=== PATIENT | male | born 2000 | race Caucasian/White ===

== ENCOUNTER 2025-04-09 00:41 | Inpatient (IN) | payer MEDICAID, OTHER ==
[~2025-04-09] VITALS: Ht 188 cm; Wt 112.7 kg
[2025-04-09 02:26] LABS: GLUCOMETER DEV NAME(LOC) ERT.7; GLUCOSE,POINT OF CARE 298 MG/DL (70-110)
[2025-04-09 02:31] LABS: COVID AG,FIA SOURCE NASAL SWAB
[2025-04-09 02:45] LABS: APPEARANCE,URINE CLEAR (CLEAR); BILIRUBIN,URINE NEGATIVE (NEGATIVE); COLOR,URINE YELLOW (YELLOW); GLUCOSE, URINE (UA) >=1000 mg/dL (NEGATIVE); KETONES,URINE NEGATIVE (NEGATIVE); LEUKOCYTE ESTERASE ,URINE NEGATIVE (NEGATIVE); NITRATE,URINE NEGATIVE (NEGATIVE); OCCULT BLOOD,URINE MODERATE (NEGATIVE); PH,URINE 5.5 (5.0-8.0); PH,URINE DRUG SCREEN 5.5 (5.0-8.0); PROTEIN,URINE 100-200,SEE CONFIRM mg/dL (NEGATIVE); SPECIFIC GRAVITIY, URINE 1.032 (1.003-1.030); UROBILINOGEN,URINE <=1.0 mg/dL (<=1.0)
[2025-04-09 02:49] LABS: ALCOHOL, URINE DRUG SCREEN NEGATIVE (NEGATIVE); AMPHET/METH SCREEN,URINE NEGATIVE (NEGATIVE); BARBITURATE SCREEN, URINE NEGATIVE (NEGATIVE); BENZODIAZEPINES SCREEN,URINE NEGATIVE (NEGATIVE); CANNABINOID SCREEN,URINE POSITIVE (NEGATIVE); COCAINE SCREEN,URINE NEGATIVE (NEGATIVE); METHADONE SCREEN, URINE NEGATIVE (NEGATIVE); OPIATE SCREEN,URINE POSITIVE (NEGATIVE); PHENCYCLIDINE SCREEN,URINE NEGATIVE (NEGATIVE)
[2025-04-09] MEDS: OLANZapine 10 MG TABLET PO ONE (02:50)
[2025-04-09] MEDS: LORazepam 2 MG TABLET PO ONE (02:50)
[2025-04-09] MEDS: ARIPiprazole 15 MG TABLET PO ONE (02:52)
[2025-04-09 02:59] LABS: SARS-COV2 (COVID) ANTIGEN,FIA Negative (Negative)
[2025-04-09 03:00] LABS: SULFOSALICYLIC ACID,URINE 4+ (Negative)
[2025-04-09 03:01] LABS: BACTERIA,URINE Few /HPF (None Seen); SQUAMOUS EPITHELIAL CELL,UR Few /LPF (None Seen); WBC,URINE 0-2 /HPF (0-5)
[2025-04-09 04:57] LABS: BASOPHILS % (AUTO) 0.2 % (0.0-2.0); EOSINOPHILS % (AUTO) 0.9 % (1.0-6.0); LYMPHOCYTES # (AUTO) 2.1 K/uL (1.0-4.8); LYMPHOCYTES % (AUTO) 24.6 % (22.0-44.0); MEAN CORPUSCULAR HEMOGLOBIN 23.3 pg (26.0-34.0); MEAN CORPUSCULAR HGB CONC 33.2 G/dL (31.0-37.0); MEAN CORPUSCULAR VOLUME 70 fL (80-100); MONOCYTES % (AUTO) 11.2 % (2.0-9.0); NEUTROPHILS # (AUTO) 5.4 K/uL (1.8-7.7); NEUTROPHILS % (AUTO) 63.1 % (40.0-70.0); PLATELET COUNT (AUTO) 311 K/uL (150-450); RED BLOOD CELL COUNT(AUTO) 5.99 MIL/uL (4.50-5.90); WHITE BLOOD COUNT (AUTO) 8.6 K/uL (4.5-11.0)
[2025-04-09 05:17] LABS: ANION GAP 4 mmol/L (8-16); CALCIUM, TOTAL 8.6 mg/dL (8.8-10.5); CARBON DIOXIDE 30 mmol/L (22-29); CHLORIDE 105 mmol/L (98-107); CREATININE 1.02 mg/dL (0.60-1.30); GLOMERULAR FILTR. RATE CALC > 60 mL/min (>60); GLUCOSE,RANDOM 193 mg/dL (70-110); POTASSIUM 4.1 mmol/L (3.5-5.1); SODIUM SERUM 139 mmol/L (136-145); UREA NITROGEN, BLOOD 23 mg/dL (7-18)
[2025-04-09] MEDS ORDERED: TUBERCULIN, PURIFIED PROTEIN DERIVATIVE 5 TU/0.1 ML SYRINGE ID ONE (07:45)
[2025-04-09] MEDS ORDERED: LOPERAMIDE HCL 2 MG CAPSULE PO PRN (07:45)
[2025-04-09] MEDS ORDERED: OLANZapine 5 MG RAPDIS TABLET PO PRN (07:45)
[2025-04-09] MEDS ORDERED: GuaiFENesin/D-METHORPHAN [SUGAR-FREE] 200-20MG/10 ML SYRUP UDCUP PO PRN (07:45)
[2025-04-09] MEDS ORDERED: ZOLPIDEM TARTRATE 10 MG TABLET PO PRN (07:45)
[2025-04-09] MEDS ORDERED: MAGNESIUM HYDROXIDE SUSPENSION 30 ML UDCUP PO PRN (07:45)
[2025-04-09] MEDS ORDERED: PROMETHAZINE HCL 25 MG TABLET PO PRN (07:45)
[2025-04-09] MEDS ORDERED: MAG HYDROX/ALUMINUM HYD/SIMETH ES 30 ML SUSPENSION UDCUP PO PRN (07:45)
[2025-04-09] MEDS ORDERED: HydrOXYzine PAMOATE 50 MG CAPSULE PO PRN (07:45)
[2025-04-09] MEDS: THIAMINE 100 MG TABLET PO SCH (08:38)
[2025-04-09] MEDS: GABAPENTIN 300 MG CAPSULE PO ONE (08:39)
[2025-04-09] MEDS: MULTIVITAMINS WITH MINERALS, THERAPEUTIC TABLET PO SCH (08:39)
[2025-04-09] MEDS: OLANZapine 5 MG TABLET PO ONE (08:39)
[2025-04-09] MEDS: FOLIC ACID 1 MG TABLET PO SCH (08:39)
[2025-04-09] MEDS: LORazepam 2 MG TABLET PO PRN (16:05)
[2025-04-09] MEDS: ACETAMINOPHEN 325 MG TABLET PO PRN (16:05)
[2025-04-09] MEDS: haloperidoL LACTATE 5 MG/ML VIAL IM ONE (16:19)
[2025-04-09] MEDS: DiphenhydrAMINE HCL 50 MG/ML VIAL IM ONE (16:19)
[2025-04-09] MEDS: LORazepam 2 MG/ML VIAL IM ONE (16:19)
[2025-04-09 17:27] VITALS: O2SAT 98
[2025-04-09] MEDS: DIVALPROEX SODIUM 500 MG ER TABLET PO SCH (20:11)
[2025-04-09] MEDS: MELATONIN 5 MG TABLET PO SCH (20:12)
[2025-04-09] MEDS: OLANZapine 5 MG RAPDIS TABLET PO SCH (21:00)
[2025-04-09 23:30] VITALS: BP 147/74; PULSE 92; RESP 18; TEMP 97.9; O2SAT 98
[2025-04-10] VITALS (10 sets, daily range): BP systolic 142–150; BP diastolic 72–76; PULSE 83–96; RESP 18; TEMP 97.2–97.9; O2SAT 98
[2025-04-10] MEDS: INSULIN LISPRO 100 UNITS/ML SQ PRN (07:19)
[2025-04-10 07:30] LABS: GLUCOMETER DEV NAME(LOC) 3E.C; GLUCOSE,POINT OF CARE 161 MG/DL (70-110)
[2025-04-10] MEDS: NALTREXONE HCL 50 MG TABLET PO SCH (09:00)
[2025-04-10] MEDS ORDERED: FOLI-130 PO (19:58)
[2025-04-10] MEDS ORDERED: MULT-248 PO (19:58)
[2025-04-10] MEDS ORDERED: THIA100T80 PO (19:58)
[2025-04-10] MEDS ORDERED: GUAI-1217 PO (19:58)
[2025-04-10] MEDS ORDERED: LOPE-232 PO (19:58)
[2025-04-10] MEDS ORDERED: OLAN5TAB94 PO (19:58)
[2025-04-10] MEDS ORDERED: HYDR50CA7 PO (19:58)
[2025-04-10] MEDS ORDERED: DIVA-153 PO (19:58)
[2025-04-10] MEDS ORDERED: MAG30ORA11 PO (19:58)
[2025-04-10] MEDS ORDERED: MELA5TAB40 PO (19:58)
[2025-04-10] MEDS ORDERED: NALT50TA33 PO (19:58)
[2025-04-10] MEDS ORDERED: PROM-223 PO (19:58)
[2025-04-10 20:49] LABS: HEMOGLOBIN A1C 6.7 % (3.8-5.6)
[2025-04-10 21:00] LABS: CHOL/HDL RATIO 2.4 (4.2-7.3); FREE T4 (FREE THYROXINE) 1.05 ng/dL (0.76-1.46); THYROID STIMULATING HORMONE 0.85 uIU/mL (0.36-3.74)
== END 2025-04-10 16:39 | disposition short-term general hospital (02) | DRG 750 ==
LOC: EMS 00:47 → 3EC 22:56
PROVIDERS: ADMIT Psychiatry & Neurology Psychiatry; ATTEND Psychiatry & Neurology Psychiatry
PROC: GZHZZZZ Group Psychotherapy (ICD-10-PCS; principal; 2025-04-10)
PROC: GZ58ZZZ Individual Psychotherapy, Cognitive-Behavioral (ICD-10-PCS; 2025-04-10)
DX: F25.0 Schizoaffective disorder, bipolar type (principal); R45.851 Suicidal ideations; L97.519 Non-pressure chronic ulcer of other part of right foot with unspecified severity; T87.43 Infection of amputation stump, right lower extremity; E11.621 Type 2 diabetes mellitus with foot ulcer; E11.65 Type 2 diabetes mellitus with hyperglycemia; E66.9 Obesity, unspecified; X58.XXXA Exposure to other specified factors, initial encounter; F84.0 Autistic disorder; F90.9 Attention-deficit hyperactivity disorder, unspecified type; G89.29 Other chronic pain; L98.8 Other specified disorders of the skin and subcutaneous tissue; Z20.822 Contact with and (suspected) exposure to COVID-19; Z79.899 Other long term (current) drug therapy; Z68.31 Body mass index [BMI] 31.0-31.9, adult; Z91.018 Allergy to other foods; Z63.9 Problem related to primary support group, unspecified; Z59.9 Problem related to housing and economic circumstances, unspecified; Z65.3 Problems related to other legal circumstances; Y93.89 Activity, other specified; Y92.89 Other specified places as the place of occurrence of the external cause; Z79.84 Long term (current) use of oral hypoglycemic drugs
CPT/HCPCS: 70450; 70486; 80048; 80061; 80307; 81001; 81002; 82962; 83036; 84439; 84443; 85025; 86592; 96372; 99285; G0480; J1200; J1630; J2060

== ENCOUNTER 2025-04-28 08:19 | Inpatient (IN) | payer OTHER ==
[~2025-04-28] VITALS: Ht 190.5 cm; Wt 95.5 kg
[~2025-04-28 08:19] MED LIST: ARIP882S2 IM; DIVA-153 PO; DULO60CA98 PO; FOLI-130 PO; GABA-1216 PO; GUAI-1217 PO; GUAN1TAB63 PO; HYDR50CA7 PO; LOPE-232 PO; MAG30ORA11 PO; MELA5TAB40 PO; METF-1185 PO; MULT-248 PO; NALT50TA33 PO; NICO2GUM36 PO; OLAN5TAB94 PO; PROM-223 PO; QUET100T PO; THIA100T80 PO; TRAZ-252 PO
[2025-04-28 08:42] VITALS: O2SAT 96
[2025-04-28] MEDS ORDERED: HYDROmorphone HCL 2 MG TABLET PO PRN (09:15)
[2025-04-28] MEDS ORDERED: ONDANSETRON HCL 4 MG/2 ML VIAL IVP PRN (09:15)
[2025-04-28] MEDS ORDERED: DEXTROSE 50%-WATER 25 GM/50 ML SYRINGE IVP PRN (09:15)
[2025-04-28] MEDS ORDERED: ACETAMINOPHEN 325 MG TABLET PO PRN (09:15)
[2025-04-28] MEDS: ONDANSETRON HCL 4 MG/2 ML VIAL IVP ONE (09:27)
[2025-04-28] MEDS: HYDROmorphone HCL 2 MG/ML SYRINGE IVP ONE (09:27)
[2025-04-28 09:59] VITALS: BP 139/78; PULSE 89; RESP 18; TEMP 97.5; O2SAT 98
[2025-04-28] MEDS ORDERED: DOCU-385 PO (11:03)
[2025-04-28] MEDS ORDERED: FAMO20 PO (11:04)
[2025-04-28] MEDS ORDERED: HEPA500018 SQ (11:05)
[2025-04-28] MEDS ORDERED: ACET-2247 PO (11:06)
[2025-04-28] MEDS ORDERED: PANT-31 PO (11:06)
[2025-04-28] MEDS ORDERED: DEXT50DI6 IV (11:08)
[2025-04-28] MEDS ORDERED: HYDR2CAR IVP (11:09)
[2025-04-28] MEDS ORDERED: INSU100V SQ (11:10)
[2025-04-28] MEDS ORDERED: ONDA2VIA4 IVP (11:12)
[2025-04-28 11:45] LABS: GLUCOMETER DEV NAME(LOC) 4E.2; GLUCOSE,POINT OF CARE 335 MG/DL (70-110)
[2025-04-28] MEDS: INSULIN LISPRO 100 UNITS/ML SQ PRN (11:50)
[2025-04-28] MEDS ORDERED: HEPARIN SODIUM,PORCINE 5,000 UNITS/ML VIAL SQ SCH (16:00)
[2025-04-28] MEDS ORDERED: DIVALPROEX SODIUM 500 MG DR TABLET PO SCH (21:00)
[2025-04-28] MEDS ORDERED: DOCUSATE SODIUM 100 MG CAPSULE PO SCH (21:00)
[2025-04-28] MEDS ORDERED: OLANZapine 7.5 MG TABLET PO SCH (21:00)
[2025-04-29] MEDS ORDERED: GuanFACINE HCL 1 MG TABLET PO SCH (09:00)
[2025-04-29] MEDS ORDERED: PANTOPRAZOLE SODIUM 40 MG DR TABLET PO SCH (09:00)
[2025-04-29] MEDS ORDERED: FAMOTIDINE 20 MG TABLET PO SCH (09:00)
== END 2025-04-28 12:06 | disposition short-term general hospital (02) | DRG 349 ==
LOC: EMS 08:19 → EDH 09:31 → 4E 10:08
PROVIDERS: ADMIT Internal Medicine; ATTEND Internal Medicine
DX: T87.89 Other complications of amputation stump (principal); L97.519 Non-pressure chronic ulcer of other part of right foot with unspecified severity; E11.40 Type 2 diabetes mellitus with diabetic neuropathy, unspecified; E11.51 Type 2 diabetes mellitus with diabetic peripheral angiopathy without gangrene; E11.621 Type 2 diabetes mellitus with foot ulcer; L97.529 Non-pressure chronic ulcer of other part of left foot with unspecified severity; G93.9 Disorder of brain, unspecified; E66.01 Morbid (severe) obesity due to excess calories; E11.65 Type 2 diabetes mellitus with hyperglycemia; F20.9 Schizophrenia, unspecified; F84.0 Autistic disorder; F90.9 Attention-deficit hyperactivity disorder, unspecified type; F31.9 Bipolar disorder, unspecified; Z79.4 Long term (current) use of insulin; Z91.199 Patient's noncompliance with other medical treatment and regimen due to unspecified reason; Z87.891 Personal history of nicotine dependence; Z89.422 Acquired absence of other left toe(s); Z91.010 Allergy to peanuts; Z91.018 Allergy to other foods; Z68.26 Body mass index [BMI] 26.0-26.9, adult; Z88.5 Allergy status to narcotic agent; Y83.8 Other surgical procedures as the cause of abnormal reaction of the patient, or of later complication, without mention of misadventure at the time of the procedure; Y92.89 Other specified places as the place of occurrence of the external cause
CPT/HCPCS: 82962; 96374; 96375; 99285; G0378; J1171; J2405

== ENCOUNTER 2025-09-14 11:53 | Inpatient (IN) | payer MEDICAID ==
[~2025-09-14] VITALS: Ht 188 cm; Wt 136.1 kg
[~2025-09-14 11:53] MED LIST changes: +ARIP15TA27 PO; -ARIP882S2 IM; +ATOM40CA9 PO; +ATOM60CA4 PO; +BUPR1TAB46 SL; +DULO60CA73 PO; -DULO60CA98 PO; -FOLI-130 PO; +GABA-1181 PO; -GABA-1216 PO; -GUAI-1217 PO; -GUAN1TAB63 PO; -HYDR50CA7 PO; -LOPE-232 PO; -MAG30ORA11 PO; -MELA5TAB40 PO; -METF-1185 PO; +METF-1211 PO; -MULT-248 PO; +MULT-664 PO; -NALT50TA33 PO; -NICO2GUM36 PO; +NIFE-141 PO; +OLAN10TA74 PO; -OLAN5TAB94 PO; +PALI117D IM; -PROM-223 PO; -QUET100T PO; -THIA100T80 PO; -TRAZ-252 PO; +VARE0.5T7 PO
[2025-09-14] MEDS ORDERED: OLANZapine 5 MG RAPDIS TABLET PO PRN (12:30)
[2025-09-14 22:52] VITALS: RESP 18
[2025-09-14] MEDS ORDERED: DEXTROSE 50%-WATER 25 GM/50 ML SYRINGE IVP PRN (23:45)
[2025-09-15] MEDS ORDERED: INFLUENZA VIRUS VACCINE TVS (6MO+) 2025-26/PF 45 MCG/0.5 ML SYRINGE IM. ONE (02:45)
[2025-09-15 06:31] LABS: GLUCOMETER DEV NAME(LOC) 3E.C; GLUCOSE,POINT OF CARE 96 MG/DL (70-110)
[2025-09-15] MEDS: ATOMOXETINE HCL 25 MG CAPSULE PO SCH (09:00)
[2025-09-15] MEDS: GABAPENTIN 300 MG CAPSULE PO SCH (09:00)
[2025-09-15] MEDS: CEPHALEXIN MONOHYDRATE 500 MG CAPSULE PO SCH (09:00)
[2025-09-15] MEDS: BuPROPion HCL XL 150 MG ER TABLET PO SCH (09:00)
[2025-09-15] MEDS: VARENICLINE TARTRATE 0.5 MG TABLET PO SCH (09:00)
[2025-09-15] MEDS: SULFAMETHOX/TRIMETH DS 800-160 MG/TABLET PO SCH (09:00)
[2025-09-15] MEDS: DIVALPROEX SODIUM 500 MG ER TABLET PO SCH (09:00)
[2025-09-15] MEDS ORDERED: BuPROPion HCL XL 150 MG ER TABLET PO SCH (09:00)
[2025-09-15] MEDS: BUPRENORPHINE HCL/NALOXONE HCL 8-2 MG SUBLINGUAL TABLET SL SCH (09:00)
[2025-09-15 09:14] VITALS: BP 94/55; PULSE 68; RESP 18; TEMP 97.8; O2SAT 100
[2025-09-15 11:59] LABS: CHOL/HDL RATIO 3.4 (4.2-7.3); LDL CHOL (CALC.) 54.0 mg/dL (0-130)
[2025-09-15] MEDS: INSULIN LISPRO 100 UNITS/ML SQ PRN (12:42)
[2025-09-15 12:56] LABS: GLUCOMETER DEV NAME(LOC) 3E.C; GLUCOSE,POINT OF CARE 134 MG/DL (70-110)
[2025-09-15 16:27] VITALS: RESP 20
[2025-09-15 17:00] LABS: GLUCOMETER DEV NAME(LOC) 3E.C; GLUCOSE,POINT OF CARE 101 MG/DL (70-110)
[2025-09-15] MEDS: INSULIN GLARGINE,HUM.REC.ANLOG 100 UNITS/ML SQ SCH (21:00)
[2025-09-15 21:06] LABS: GLUCOMETER DEV NAME(LOC) 3E.C; GLUCOSE,POINT OF CARE 92 MG/DL (70-110)
[2025-09-15 21:07] VITALS: BP 121/55; PULSE 92; RESP 18; TEMP 97.5; O2SAT 96
[2025-09-16 10:52] VITALS: BP 125/91; PULSE 95; RESP 17; TEMP 97.9; O2SAT 99
[2025-09-16 12:00] LABS: GLUCOMETER DEV NAME(LOC) 3E.C; GLUCOSE,POINT OF CARE 133 MG/DL (70-110)
[2025-09-16] MEDS: NICOTINE POLACRILEX 2 MG GUM CHEW ONE (12:22)
[2025-09-16] MEDS: NICOTINE POLACRILEX 2 MG GUM CHEW PRN (12:40)
[2025-09-16 17:10] VITALS: BP 137/88; PULSE 103; RESP 18
[2025-09-16 17:40] LABS: GLUCOMETER DEV NAME(LOC) 3E.C; GLUCOSE,POINT OF CARE 185 MG/DL (70-110)
[2025-09-16 20:08] VITALS: RESP 18; TEMP 98.7
[2025-09-16] MEDS: OLANZapine 5 MG RAPDIS TABLET PO SCH (21:33)
[2025-09-16 21:36] LABS: GLUCOMETER DEV NAME(LOC) 3E.C; GLUCOSE,POINT OF CARE 93 MG/DL (70-110)
[2025-09-17] MEDS: ZOLPIDEM TARTRATE 10 MG TABLET PO PRN (01:06)
[2025-09-17] MEDS: ATOMOXETINE HCL 40 MG CAPSULE PO SCH (08:46)
[2025-09-17] MEDS ORDERED: ATOMOXETINE HCL 40 MG CAPSULE PO SCH (09:00)
[2025-09-17 11:50] LABS: GLUCOMETER DEV NAME(LOC) 3E.C; GLUCOSE,POINT OF CARE 228 MG/DL (70-110)
[2025-09-17 13:12] VITALS: BP 135/89; PULSE 98; RESP 17; TEMP 98.2; O2SAT 99
[2025-09-17 17:31] LABS: GLUCOMETER DEV NAME(LOC) 3E.C; GLUCOSE,POINT OF CARE 168 MG/DL (70-110)
[2025-09-17 20:00] VITALS: BP 136/82; PULSE 98; RESP 18; TEMP 98.3; O2SAT 100
[2025-09-17 21:45] LABS: GLUCOMETER DEV NAME(LOC) 3E.C; GLUCOSE,POINT OF CARE 153 MG/DL (70-110)
[2025-09-18 07:01] LABS: GLUCOMETER DEV NAME(LOC) 3E.C; GLUCOSE,POINT OF CARE 97 MG/DL (70-110)
[2025-09-18 08:02] LABS: PLATELET COUNT (AUTO) 210 K/uL (150-450); RED BLOOD CELL COUNT(AUTO) 5.08 MIL/uL (4.50-5.90); RED CELL DISTRIBUTION WIDTH 17.5 % (11.5-14.5); WHITE BLOOD COUNT (AUTO) 3.9 K/uL (4.5-11.0)
[2025-09-18 08:13] LABS: CALCIUM, TOTAL 8.3 mg/dL (8.8-10.5); CREATININE 0.88 mg/dL (0.60-1.30); GLOMERULAR FILTR. RATE CALC > 60 mL/min (>60); GLUCOSE,RANDOM 150 mg/dL (70-110); SODIUM SERUM 142 mmol/L (136-145); UREA NITROGEN, BLOOD 17 mg/dL (7-18)
[2025-09-18 08:28] VITALS: BP 136/82; PULSE 91; RESP 18; TEMP 98.3; O2SAT 98
[2025-09-18 09:51] LABS: RBC MORPHOLOGY COMMENT ABNORMAL RBC MORPH
[2025-09-18 10:25] LABS: GLUCOMETER DEV NAME(LOC) 3E.C; GLUCOSE,POINT OF CARE 119 MG/DL (70-110)
[2025-09-18 12:00] LABS: GLUCOMETER DEV NAME(LOC) 3E.C; GLUCOSE,POINT OF CARE 130 MG/DL (70-110)
[2025-09-18] MEDS: TRIHEXYPHENIDYL HCL 5 MG TABLET PO SCH (13:05)
[2025-09-18 17:31] LABS: GLUCOMETER DEV NAME(LOC) 3E.C; GLUCOSE,POINT OF CARE 121 MG/DL (70-110)
[2025-09-18 20:09] VITALS: BP 139/87; PULSE 82; RESP 18; TEMP 97.8; O2SAT 98
[2025-09-18 20:40] VITALS: BP 139/87; PULSE 82; RESP 18; TEMP 97.8; O2SAT 98
[2025-09-18] MEDS: ACETAMINOPHEN 650 MG/20.3 ML SOLUTION UDCUP PO PRN (20:43)
[2025-09-18 20:56] LABS: GLUCOMETER DEV NAME(LOC) 3E.C; GLUCOSE,POINT OF CARE 168 MG/DL (70-110)
[2025-09-18 21:43] VITALS: RESP 18
[2025-09-19 06:45] LABS: GLUCOMETER DEV NAME(LOC) 3E.C; GLUCOSE,POINT OF CARE 128 MG/DL (70-110)
[2025-09-19 09:31] VITALS: BP 123/58; PULSE 74; RESP 18; TEMP 98.1; O2SAT 100
[2025-09-19 11:41] LABS: GLUCOMETER DEV NAME(LOC) 3E.C; GLUCOSE,POINT OF CARE 105 MG/DL (70-110)
[2025-09-19] MEDS ORDERED: ACETAMINOPHEN 325 MG TABLET PO PRN (12:15)
[2025-09-19 16:56] LABS: GLUCOMETER DEV NAME(LOC) 3E.C; GLUCOSE,POINT OF CARE 102 MG/DL (70-110)
[2025-09-19 20:01] VITALS: BP 134/79; PULSE 83; RESP 18; TEMP 98.4; O2SAT 97
[2025-09-19 20:51] LABS: GLUCOMETER DEV NAME(LOC) 3E.C; GLUCOSE,POINT OF CARE 111 MG/DL (70-110)
[2025-09-20 06:35] LABS: GLUCOMETER DEV NAME(LOC) 3E.C; GLUCOSE,POINT OF CARE 102 MG/DL (70-110)
[2025-09-20] MEDS: ATOMOXETINE HCL 60 MG CAPSULE PO SCH (08:06)
[2025-09-20 08:26] LABS: GLUCOMETER DEV NAME(LOC) 3E.C; GLUCOSE,POINT OF CARE 139 MG/DL (70-110)
[2025-09-20 11:55] LABS: GLUCOMETER DEV NAME(LOC) 3E.C; GLUCOSE,POINT OF CARE 147 MG/DL (70-110)
[2025-09-20 12:47] VITALS: BP 146/79; PULSE 94; RESP 18; TEMP 98; O2SAT 97
[2025-09-20 17:15] LABS: GLUCOMETER DEV NAME(LOC) 3E.C; GLUCOSE,POINT OF CARE 135 MG/DL (70-110)
[2025-09-20 20:01] VITALS: BP 147/86; PULSE 93; RESP 18; TEMP 97.6; O2SAT 95
[2025-09-20] MEDS: OLANZapine 10 MG RAPDIS TABLET PO SCH (20:28)
[2025-09-20 21:20] LABS: GLUCOMETER DEV NAME(LOC) 3E.C; GLUCOSE,POINT OF CARE 163 MG/DL (70-110)
[2025-09-21 06:50] LABS: GLUCOMETER DEV NAME(LOC) 3E.C; GLUCOSE,POINT OF CARE 88 MG/DL (70-110)
[2025-09-21] MEDS: ATOMOXETINE HCL 40 MG CAPSULE PO SCH (08:51)
[2025-09-21 09:02] VITALS: BP 112/62; PULSE 74; RESP 18; TEMP 98; O2SAT 95
[2025-09-21 11:40] LABS: GLUCOMETER DEV NAME(LOC) 3E.C; GLUCOSE,POINT OF CARE 116 MG/DL (70-110)
[2025-09-21 17:51] LABS: GLUCOMETER DEV NAME(LOC) 3E.C; GLUCOSE,POINT OF CARE 160 MG/DL (70-110)
[2025-09-21 20:02] VITALS: BP 127/76; PULSE 79; RESP 20; TEMP 98.3; O2SAT 99
[2025-09-21 20:40] LABS: GLUCOMETER DEV NAME(LOC) 3E.C; GLUCOSE,POINT OF CARE 142 MG/DL (70-110)
[2025-09-22 06:30] LABS: GLUCOMETER DEV NAME(LOC) 3E.C; GLUCOSE,POINT OF CARE 126 MG/DL (70-110)
[2025-09-22 08:29] VITALS: BP 142/81; PULSE 81; RESP 18; TEMP 98; O2SAT 96
[2025-09-22 11:40] LABS: GLUCOMETER DEV NAME(LOC) 3E.C; GLUCOSE,POINT OF CARE 106 MG/DL (70-110)
[2025-09-22 16:45] LABS: GLUCOMETER DEV NAME(LOC) 3E.C; GLUCOSE,POINT OF CARE 130 MG/DL (70-110)
[2025-09-22] MEDS: ONDANSETRON 4 MG TABLET PO PRN (20:05)
[2025-09-22 20:16] LABS: GLUCOMETER DEV NAME(LOC) 3E.C; GLUCOSE,POINT OF CARE 165 MG/DL (70-110)
[2025-09-22 20:22] VITALS: BP 139/75; PULSE 80; RESP 18; TEMP 97.7; O2SAT 100
[2025-09-22 20:27] VITALS: RESP 18
[2025-09-23 06:50] LABS: GLUCOMETER DEV NAME(LOC) 3E.C; GLUCOSE,POINT OF CARE 115 MG/DL (70-110)
[2025-09-23 08:49] VITALS: BP 123/71; PULSE 62; RESP 18; TEMP 97.2; O2SAT 95
[2025-09-23] MEDS: ACETAMINOPHEN 325 MG TABLET PO PRN (08:49)
[2025-09-23 09:10] VITALS: BP 123/71; PULSE 62; RESP 17; TEMP 97.8; O2SAT 97
[2025-09-23 12:05] LABS: GLUCOMETER DEV NAME(LOC) 3E.C; GLUCOSE,POINT OF CARE 139 MG/DL (70-110)
[2025-09-23 17:10] LABS: GLUCOMETER DEV NAME(LOC) 3E.C; GLUCOSE,POINT OF CARE 149 MG/DL (70-110)
[2025-09-23 20:33] VITALS: BP 109/60; PULSE 69; RESP 18; TEMP 97.9; O2SAT 100
[2025-09-23 21:05] LABS: GLUCOMETER DEV NAME(LOC) 3E.C; GLUCOSE,POINT OF CARE 139 MG/DL (70-110)
[2025-09-24 07:01] LABS: GLUCOMETER DEV NAME(LOC) 3E.C; GLUCOSE,POINT OF CARE 117 MG/DL (70-110)
[2025-09-24 08:25] VITALS: BP 114/68; PULSE 84; RESP 16; TEMP 96.8; O2SAT 95
[2025-09-24 11:55] LABS: GLUCOMETER DEV NAME(LOC) 3E.C; GLUCOSE,POINT OF CARE 170 MG/DL (70-110)
[2025-09-24 17:01] LABS: GLUCOMETER DEV NAME(LOC) 3E.C; GLUCOSE,POINT OF CARE 112 MG/DL (70-110)
[2025-09-24] MEDS ORDERED: PETROLATUM,WHITE 28 GM JELLY TP PRN (17:15)
[2025-09-24] MEDS ORDERED: ALBUTEROL SULFATE HFA 90 MCG/PUFF 8 GM INHALER IH PRN (17:15)
[2025-09-24] MEDS ORDERED: DOCUSATE SODIUM 100 MG CAPSULE PO PRN (17:15)
[2025-09-24] MEDS ORDERED: MAG HYDROX/ALUMINUM HYD/SIMETH ES 30 ML SUSPENSION UDCUP PO PRN (17:15)
[2025-09-24] MEDS ORDERED: MAGNESIUM HYDROXIDE SUSPENSION 30 ML UDCUP PO PRN (17:15)
[2025-09-24 20:14] VITALS: BP 138/60; PULSE 84; RESP 18; TEMP 97.8; O2SAT 99
[2025-09-24 20:16] LABS: GLUCOMETER DEV NAME(LOC) 3E.C; GLUCOSE,POINT OF CARE 112 MG/DL (70-110)
[2025-09-25 06:31] LABS: GLUCOMETER DEV NAME(LOC) 3E.C; GLUCOSE,POINT OF CARE 112 MG/DL (70-110)
[2025-09-25 08:15] VITALS: BP 125/65; PULSE 66; RESP 16; TEMP 97.4; O2SAT 99
[2025-09-25] MEDS: GuaiFENesin/D-METHORPHAN [SUGAR-FREE] 200-20MG/10 ML SYRUP UDCUP PO PRN (09:41)
[2025-09-25] MEDS: COLLAGENASE 250 UNITS/GM 30 GM OINTMENT TP SCH (11:01)
[2025-09-25 11:45] LABS: GLUCOMETER DEV NAME(LOC) 3E.C; GLUCOSE,POINT OF CARE 119 MG/DL (70-110)
[2025-09-25] MEDS: ONDANSETRON 4 MG TABLET PO PRN (16:46)
[2025-09-25 17:01] LABS: GLUCOMETER DEV NAME(LOC) 3E.C; GLUCOSE,POINT OF CARE 140 MG/DL (70-110)
[2025-09-25 18:08] LABS: COVID AG,FIA SOURCE NASAL SWAB
[2025-09-25 18:42] LABS: INFLUENZA TYPE A NEGATIVE FOR TYPE A (NEGATIVE); INFLUENZA TYPE B NEGATIVE FOR TYPE B (NEGATIVE); SARS-COV2 (COVID) ANTIGEN,FIA Negative (Negative)
[2025-09-25 20:12] VITALS: BP 136/68; PULSE 82; RESP 17; TEMP 97.6; O2SAT 98
[2025-09-25 20:35] LABS: GLUCOMETER DEV NAME(LOC) 3E.C; GLUCOSE,POINT OF CARE 137 MG/DL (70-110)
[2025-09-25 21:50] LABS: APPEARANCE,URINE CLEAR (CLEAR); GLUCOSE, URINE (UA) NEGATIVE (NEGATIVE); LEUKOCYTE ESTERASE ,URINE NEGATIVE (NEGATIVE); NITRATE,URINE NEGATIVE (NEGATIVE); OCCULT BLOOD,URINE NEGATIVE (NEGATIVE); SPECIFIC GRAVITIY, URINE 1.018 (1.003-1.030)
[2025-09-26 06:56] LABS: GLUCOMETER DEV NAME(LOC) 3E.C; GLUCOSE,POINT OF CARE 105 MG/DL (70-110)
[2025-09-26 09:37] VITALS: BP 113/65; PULSE 74; RESP 18; TEMP 97.8; O2SAT 96
[2025-09-26 12:00] LABS: GLUCOMETER DEV NAME(LOC) 3EX.2; GLUCOSE,POINT OF CARE 131 MG/DL (70-110)
[2025-09-26 17:41] LABS: GLUCOMETER DEV NAME(LOC) 3EX.2; GLUCOSE,POINT OF CARE 137 MG/DL (70-110)
[2025-09-26 20:55] LABS: GLUCOMETER DEV NAME(LOC) 3EX.2; GLUCOSE,POINT OF CARE 133 MG/DL (70-110)
[2025-09-26 21:52] VITALS: BP 119/75; PULSE 81; RESP 18; TEMP 97.6; O2SAT 97
[2025-09-27] MEDS: ATOMOXETINE HCL 60 MG CAPSULE PO SCH (09:34)
[2025-09-27] MEDS: ATOMOXETINE HCL 40 MG CAPSULE PO SCH (09:34)
[2025-09-27 09:54] VITALS: BP 127/59; PULSE 68; RESP 17; TEMP 98; O2SAT 98
[2025-09-27 11:55] LABS: GLUCOMETER DEV NAME(LOC) 3EX.2; GLUCOSE,POINT OF CARE 144 MG/DL (70-110)
[2025-09-27 17:41] LABS: GLUCOMETER DEV NAME(LOC) 3EX.2; GLUCOSE,POINT OF CARE 116 MG/DL (70-110)
[2025-09-27 21:30] LABS: GLUCOMETER DEV NAME(LOC) 3EX.2; GLUCOSE,POINT OF CARE 155 MG/DL (70-110)
[2025-09-27 23:40] VITALS: BP 122/64; PULSE 83; RESP 18; TEMP 98.1; O2SAT 96
[2025-09-28 06:46] LABS: GLUCOMETER DEV NAME(LOC) 3EX.2; GLUCOSE,POINT OF CARE 123 MG/DL (70-110)
[2025-09-28 09:33] VITALS: BP 111/57; PULSE 76; RESP 16; TEMP 98.4; O2SAT 99
[2025-09-28 12:11] LABS: GLUCOMETER DEV NAME(LOC) 3EX.2; GLUCOSE,POINT OF CARE 113 MG/DL (70-110)
[2025-09-28 15:21] VITALS: BP 136/69; PULSE 79; RESP 18; TEMP 97.6; O2SAT 98
[2025-09-28] MEDS: IBUPROFEN 400 MG TABLET PO PRN (15:21)
[2025-09-28 17:36] LABS: GLUCOMETER DEV NAME(LOC) 3EX.2; GLUCOSE,POINT OF CARE 123 MG/DL (70-110)
[2025-09-28 20:11] LABS: GLUCOMETER DEV NAME(LOC) 3EX.2; GLUCOSE,POINT OF CARE 128 MG/DL (70-110)
[2025-09-28 21:30] VITALS: RESP 18
[2025-09-29 06:31] LABS: GLUCOMETER DEV NAME(LOC) 3EX.2; GLUCOSE,POINT OF CARE 127 MG/DL (70-110)
[2025-09-29 10:24] VITALS: BP 144/80; PULSE 83; RESP 18; O2SAT 97
[2025-09-29 11:46] LABS: GLUCOMETER DEV NAME(LOC) 3EX.2; GLUCOSE,POINT OF CARE 135 MG/DL (70-110)
[2025-09-29 16:21] LABS: GLUCOMETER DEV NAME(LOC) 3EX.2; GLUCOSE,POINT OF CARE 95 MG/DL (70-110)
[2025-09-29 20:51] LABS: GLUCOMETER DEV NAME(LOC) 3EX.2; GLUCOSE,POINT OF CARE 132 MG/DL (70-110)
[2025-09-29 21:39] VITALS: BP 129/73; PULSE 81; RESP 18; TEMP 98.1; O2SAT 97
[2025-09-30 06:15] LABS: GLUCOMETER DEV NAME(LOC) 3EX.2; GLUCOSE,POINT OF CARE 115 MG/DL (70-110)
[2025-09-30 10:20] VITALS: BP 102/64; PULSE 64; RESP 18; TEMP 98.9; O2SAT 100
[2025-09-30 11:46] LABS: GLUCOMETER DEV NAME(LOC) 3EX.2; GLUCOSE,POINT OF CARE 126 MG/DL (70-110)
[2025-09-30 16:41] LABS: GLUCOMETER DEV NAME(LOC) 3EX.2; GLUCOSE,POINT OF CARE 142 MG/DL (70-110)
[2025-09-30 20:21] LABS: GLUCOMETER DEV NAME(LOC) 3EX.2; GLUCOSE,POINT OF CARE 117 MG/DL (70-110)
[2025-09-30 21:41] VITALS: BP 123/71; PULSE 76; RESP 18; TEMP 98.5; O2SAT 100
[2025-10-01 06:15] LABS: GLUCOMETER DEV NAME(LOC) 3EX.2; GLUCOSE,POINT OF CARE 121 MG/DL (70-110)
[2025-10-01 08:07] VITALS: RESP 18
[2025-10-01 11:55] LABS: GLUCOMETER DEV NAME(LOC) 3EX.2; GLUCOSE,POINT OF CARE 134 MG/DL (70-110)
[2025-10-01 16:45] LABS: GLUCOMETER DEV NAME(LOC) 3EX.2; GLUCOSE,POINT OF CARE 131 MG/DL (70-110)
[2025-10-01 20:30] VITALS: RESP 18
[2025-10-01 20:36] LABS: GLUCOMETER DEV NAME(LOC) 3EX.2; GLUCOSE,POINT OF CARE 130 MG/DL (70-110)
[2025-10-02 06:26] LABS: GLUCOMETER DEV NAME(LOC) 3EX.2; GLUCOSE,POINT OF CARE 133 MG/DL (70-110)
[2025-10-02 09:09] VITALS: BP 122/64; PULSE 72; RESP 16; TEMP 98.7; O2SAT 100
[2025-10-02 11:50] LABS: GLUCOMETER DEV NAME(LOC) 3EX.2; GLUCOSE,POINT OF CARE 117 MG/DL (70-110)
[2025-10-02 17:01] LABS: GLUCOMETER DEV NAME(LOC) 3EX.2; GLUCOSE,POINT OF CARE 115 MG/DL (70-110)
[2025-10-02 20:00] VITALS: BP 102/60; PULSE 70; RESP 18; TEMP 97.6; O2SAT 100
[2025-10-02 20:26] LABS: GLUCOMETER DEV NAME(LOC) 3EX.2; GLUCOSE,POINT OF CARE 108 MG/DL (70-110)
[2025-10-03 05:36] LABS: GLUCOMETER DEV NAME(LOC) 3EX.2; GLUCOSE,POINT OF CARE 99 MG/DL (70-110)
[2025-10-03 11:56] LABS: GLUCOMETER DEV NAME(LOC) 3EX.2; GLUCOSE,POINT OF CARE 96 MG/DL (70-110)
[2025-10-03 16:36] VITALS: BP 126/68; PULSE 74; RESP 18; TEMP 97.8; O2SAT 99
[2025-10-03 17:15] LABS: GLUCOMETER DEV NAME(LOC) 3EX.2; GLUCOSE,POINT OF CARE 135 MG/DL (70-110)
[2025-10-03 20:21] LABS: GLUCOMETER DEV NAME(LOC) 3EX.2; GLUCOSE,POINT OF CARE 132 MG/DL (70-110)
[2025-10-03 20:39] VITALS: BP 116/62; PULSE 75; RESP 18; TEMP 98.1; O2SAT 99
[2025-10-04 06:30] LABS: GLUCOMETER DEV NAME(LOC) 3EX.2; GLUCOSE,POINT OF CARE 122 MG/DL (70-110)
[2025-10-04 10:26] VITALS: BP 100/56; PULSE 70; RESP 18; TEMP 97.8; O2SAT 98
[2025-10-04 11:46] LABS: GLUCOMETER DEV NAME(LOC) 3EX.2; GLUCOSE,POINT OF CARE 181 MG/DL (70-110)
[2025-10-04 17:15] LABS: GLUCOMETER DEV NAME(LOC) 3EX.2; GLUCOSE,POINT OF CARE 140 MG/DL (70-110)
[2025-10-04 20:20] VITALS: BP 126/61; PULSE 69; RESP 18; TEMP 98; O2SAT 96
[2025-10-04 20:45] LABS: GLUCOMETER DEV NAME(LOC) 3EX.2; GLUCOSE,POINT OF CARE 198 MG/DL (70-110)
[2025-10-05 06:30] LABS: GLUCOMETER DEV NAME(LOC) 3EX.2; GLUCOSE,POINT OF CARE 153 MG/DL (70-110)
[2025-10-05 09:40] VITALS: BP 112/66; PULSE 81; RESP 18; TEMP 97.8; O2SAT 98
[2025-10-05 11:45] LABS: GLUCOMETER DEV NAME(LOC) 3EX.2; GLUCOSE,POINT OF CARE 137 MG/DL (70-110)
[2025-10-05 17:15] LABS: GLUCOMETER DEV NAME(LOC) 3EX.2; GLUCOSE,POINT OF CARE 133 MG/DL (70-110)
[2025-10-05 20:10] LABS: GLUCOMETER DEV NAME(LOC) 3EX.2; GLUCOSE,POINT OF CARE 187 MG/DL (70-110)
[2025-10-05 21:26] VITALS: BP 143/86; PULSE 76; RESP 18; TEMP 97.6; O2SAT 95
[2025-10-06 06:26] LABS: GLUCOMETER DEV NAME(LOC) 3EX.2; GLUCOSE,POINT OF CARE 123 MG/DL (70-110)
[2025-10-06 08:30] VITALS: BP 114/60; PULSE 73; RESP 18; TEMP 97.7; O2SAT 98
[2025-10-06 12:05] LABS: GLUCOMETER DEV NAME(LOC) 3EX.2; GLUCOSE,POINT OF CARE 88 MG/DL (70-110)
[2025-10-06 16:57] VITALS: BP 116/68; PULSE 64; RESP 18
[2025-10-06 17:10] LABS: GLUCOMETER DEV NAME(LOC) 3EX.2; GLUCOSE,POINT OF CARE 129 MG/DL (70-110)
[2025-10-06 20:16] LABS: GLUCOMETER DEV NAME(LOC) 3EX.2; GLUCOSE,POINT OF CARE 133 MG/DL (70-110)
[2025-10-06 22:05] VITALS: BP 122/73; PULSE 77; RESP 16; TEMP 96.9; O2SAT 100
[2025-10-07 06:30] LABS: GLUCOMETER DEV NAME(LOC) 3EX.2; GLUCOSE,POINT OF CARE 120 MG/DL (70-110)
[2025-10-07 11:46] LABS: GLUCOMETER DEV NAME(LOC) 3EX.2; GLUCOSE,POINT OF CARE 103 MG/DL (70-110)
[2025-10-07 17:35] LABS: GLUCOMETER DEV NAME(LOC) 3EX.2; GLUCOSE,POINT OF CARE 112 MG/DL (70-110)
[2025-10-07 17:40] VITALS: BP 108/48; PULSE 66; RESP 19; TEMP 97.7; O2SAT 98
[2025-10-07 20:25] LABS: GLUCOMETER DEV NAME(LOC) 3EX.2; GLUCOSE,POINT OF CARE 140 MG/DL (70-110)
[2025-10-07 22:53] VITALS: BP 111/64; PULSE 73; RESP 18; TEMP 98.3; O2SAT 99
[2025-10-08 06:06] LABS: GLUCOMETER DEV NAME(LOC) 3EX.2; GLUCOSE,POINT OF CARE 95 MG/DL (70-110)
[2025-10-08 11:10] VITALS: BP 128/59; PULSE 82; RESP 18; TEMP 98; O2SAT 95
[2025-10-08 11:56] LABS: GLUCOMETER DEV NAME(LOC) 3EX.2; GLUCOSE,POINT OF CARE 141 MG/DL (70-110)
[2025-10-08 17:06] LABS: GLUCOMETER DEV NAME(LOC) 3EX.2; GLUCOSE,POINT OF CARE 134 MG/DL (70-110)
[2025-10-08 20:06] LABS: GLUCOMETER DEV NAME(LOC) 3EX.2; GLUCOSE,POINT OF CARE 134 MG/DL (70-110)
[2025-10-08 22:50] VITALS: BP 107/54; PULSE 79; RESP 17; O2SAT 96
[2025-10-09 06:30] LABS: GLUCOMETER DEV NAME(LOC) 3EX.2; GLUCOSE,POINT OF CARE 120 MG/DL (70-110)
[2025-10-09 09:20] VITALS: BP 116/62; PULSE 78; RESP 18; TEMP 97.2; O2SAT 98
[2025-10-09 11:56] LABS: GLUCOMETER DEV NAME(LOC) 3EX.2; GLUCOSE,POINT OF CARE 120 MG/DL (70-110)
[2025-10-09] MEDS: TUBERCULIN, PURIFIED PROTEIN DERIVATIVE 5 TU/0.1 ML SYRINGE ID ONE (12:21)
[2025-10-09 13:03] VITALS: BP 131/73; PULSE 78; RESP 18; O2SAT 97
[2025-10-09 17:20] LABS: GLUCOMETER DEV NAME(LOC) 3EX.2; GLUCOSE,POINT OF CARE 101 MG/DL (70-110)
[2025-10-09 17:30] VITALS: BP 128/78; PULSE 82; RESP 18; O2SAT 98
[2025-10-09 20:15] LABS: GLUCOMETER DEV NAME(LOC) 3EX.2; GLUCOSE,POINT OF CARE 173 MG/DL (70-110)
[2025-10-09 20:28] VITALS: BP 125/71; PULSE 80; RESP 18; TEMP 97.6; O2SAT 96
[2025-10-10 06:20] LABS: GLUCOMETER DEV NAME(LOC) 3EX.2; GLUCOSE,POINT OF CARE 120 MG/DL (70-110)
[2025-10-10 09:41] VITALS: BP 117/70; PULSE 78; RESP 18; TEMP 97.8; O2SAT 97
[2025-10-10 11:46] LABS: GLUCOMETER DEV NAME(LOC) 3EX.2; GLUCOSE,POINT OF CARE 160 MG/DL (70-110)
[2025-10-10 16:26] LABS: GLUCOMETER DEV NAME(LOC) 3EX.2; GLUCOSE,POINT OF CARE 105 MG/DL (70-110)
[2025-10-10 20:25] LABS: GLUCOMETER DEV NAME(LOC) 3EX.2; GLUCOSE,POINT OF CARE 124 MG/DL (70-110)
[2025-10-10] MEDS: OLANZapine 5 MG RAPDIS TABLET PO SCH (20:46)
[2025-10-10 21:39] VITALS: RESP 18
[2025-10-11 06:30] LABS: GLUCOMETER DEV NAME(LOC) 3EX.2; GLUCOSE,POINT OF CARE 133 MG/DL (70-110)
[2025-10-11 09:38] VITALS: BP 144/86; PULSE 82; RESP 17; TEMP 98.4; O2SAT 100
[2025-10-11 11:50] LABS: GLUCOMETER DEV NAME(LOC) 3EX.2; GLUCOSE,POINT OF CARE 93 MG/DL (70-110)
[2025-10-11 17:11] LABS: GLUCOMETER DEV NAME(LOC) 3EX.2; GLUCOSE,POINT OF CARE 163 MG/DL (70-110)
[2025-10-11 20:08] VITALS: BP 132/81; PULSE 70; RESP 18; TEMP 98; O2SAT 98
[2025-10-11 20:16] LABS: GLUCOMETER DEV NAME(LOC) 3EX.2; GLUCOSE,POINT OF CARE 128 MG/DL (70-110)
[2025-10-12 06:25] LABS: GLUCOMETER DEV NAME(LOC) 3EX.2; GLUCOSE,POINT OF CARE 137 MG/DL (70-110)
[2025-10-12 11:50] LABS: GLUCOMETER DEV NAME(LOC) 3EX.2; GLUCOSE,POINT OF CARE 100 MG/DL (70-110)
[2025-10-12 12:45] VITALS: BP 119/64; PULSE 88; RESP 18; TEMP 97.6; O2SAT 99
[2025-10-12 17:11] LABS: GLUCOMETER DEV NAME(LOC) 3EX.2; GLUCOSE,POINT OF CARE 121 MG/DL (70-110)
[2025-10-12 21:25] VITALS: BP 138/79; PULSE 94; RESP 18; TEMP 97.8; O2SAT 97
[2025-10-12 23:16] LABS: GLUCOMETER DEV NAME(LOC) 3EX.2; GLUCOSE,POINT OF CARE 350 MG/DL (70-110)
[2025-10-13 07:00] LABS: GLUCOMETER DEV NAME(LOC) 3EX.2; GLUCOSE,POINT OF CARE 103 MG/DL (70-110)
[2025-10-13 10:28] VITALS: RESP 18
[2025-10-13 11:51] LABS: GLUCOMETER DEV NAME(LOC) 3EX.2; GLUCOSE,POINT OF CARE 134 MG/DL (70-110)
[2025-10-13 16:20] LABS: GLUCOMETER DEV NAME(LOC) 3EX.2; GLUCOSE,POINT OF CARE 112 MG/DL (70-110)
[2025-10-13 20:06] VITALS: BP 137/76; PULSE 63; RESP 16; TEMP 97.8; O2SAT 96
[2025-10-13 20:11] LABS: GLUCOMETER DEV NAME(LOC) 3EX.2; GLUCOSE,POINT OF CARE 165 MG/DL (70-110)
[2025-10-14 06:26] LABS: GLUCOMETER DEV NAME(LOC) 3EX.2; GLUCOSE,POINT OF CARE 156 MG/DL (70-110)
[2025-10-14 11:31] LABS: GLUCOMETER DEV NAME(LOC) 3EX.2; GLUCOSE,POINT OF CARE 110 MG/DL (70-110)
[2025-10-14 12:41] VITALS: RESP 16; TEMP 97
[2025-10-14 16:40] LABS: GLUCOMETER DEV NAME(LOC) 3EX.2; GLUCOSE,POINT OF CARE 139 MG/DL (70-110)
[2025-10-14 17:25] VITALS: BP 137/70; PULSE 88; RESP 19; TEMP 97.8; O2SAT 98
[2025-10-14 18:31] VITALS: RESP 17
[2025-10-14 22:25] VITALS: BP 131/73; PULSE 83; RESP 18; TEMP 97.5; O2SAT 96
[2025-10-14 23:41] LABS: GLUCOMETER DEV NAME(LOC) 3EX.2; GLUCOSE,POINT OF CARE 158 MG/DL (70-110)
[2025-10-15 06:55] LABS: GLUCOMETER DEV NAME(LOC) 3EX.2; GLUCOSE,POINT OF CARE 148 MG/DL (70-110)
[2025-10-15] MEDS: NYSTATIN 15 GM POWDER BOTTLE TP PRN (09:02)
[2025-10-15 11:46] LABS: GLUCOMETER DEV NAME(LOC) 3EX.2; GLUCOSE,POINT OF CARE 124 MG/DL (70-110)
[2025-10-15 13:40] VITALS: BP 123/70; PULSE 75; RESP 18; TEMP 97.7; O2SAT 100
[2025-10-15 15:36] VITALS: BP_SYST 71; PULSE 61; RESP 17; TEMP 97
[2025-10-15 16:36] VITALS: BP 135/72; PULSE 73; RESP 17; TEMP 97.7
[2025-10-15 17:25] LABS: GLUCOMETER DEV NAME(LOC) 3EX.2; GLUCOSE,POINT OF CARE 127 MG/DL (70-110)
[2025-10-15 20:00] VITALS: BP 121/69; PULSE 81; RESP 18; TEMP 98.1; O2SAT 99
[2025-10-15 21:31] LABS: GLUCOMETER DEV NAME(LOC) 3EX.2; GLUCOSE,POINT OF CARE 187 MG/DL (70-110)
[2025-10-16 06:40] LABS: GLUCOMETER DEV NAME(LOC) 3EX.2; GLUCOSE,POINT OF CARE 143 MG/DL (70-110)
[2025-10-16 08:55] VITALS: BP 115/66; PULSE 76; RESP 18; TEMP 98.2; O2SAT 100
[2025-10-16 11:31] LABS: GLUCOMETER DEV NAME(LOC) 3EX.2; GLUCOSE,POINT OF CARE 126 MG/DL (70-110)
[2025-10-16 17:11] LABS: GLUCOMETER DEV NAME(LOC) 3EX.2; GLUCOSE,POINT OF CARE 143 MG/DL (70-110)
[2025-10-16 20:03] VITALS: BP 114/53; PULSE 75; RESP 18; TEMP 98; O2SAT 99
[2025-10-16 20:06] LABS: GLUCOMETER DEV NAME(LOC) 3EX.2; GLUCOSE,POINT OF CARE 160 MG/DL (70-110)
[2025-10-17 06:31] LABS: GLUCOMETER DEV NAME(LOC) 3EX.2; GLUCOSE,POINT OF CARE 106 MG/DL (70-110)
[2025-10-17 09:00] VITALS: BP 132/82; PULSE 71; RESP 18; TEMP 98.1; O2SAT 96
[2025-10-17 11:55] LABS: GLUCOMETER DEV NAME(LOC) 3EX.2; GLUCOSE,POINT OF CARE 156 MG/DL (70-110)
[2025-10-17 17:41] LABS: GLUCOMETER DEV NAME(LOC) 3EX.2; GLUCOSE,POINT OF CARE 164 MG/DL (70-110)
[2025-10-17 21:09] VITALS: BP 129/82; PULSE 86; RESP 16; TEMP 97.3; O2SAT 95
[2025-10-17 21:16] LABS: GLUCOMETER DEV NAME(LOC) 3EX.2; GLUCOSE,POINT OF CARE 104 MG/DL (70-110)
[2025-10-18 06:40] LABS: GLUCOMETER DEV NAME(LOC) 3EX.2; GLUCOSE,POINT OF CARE 108 MG/DL (70-110)
[2025-10-18 10:31] VITALS: BP 120/73; PULSE 78; RESP 18; TEMP 97.7; O2SAT 99
[2025-10-18 11:45] LABS: GLUCOMETER DEV NAME(LOC) 3EX.2; GLUCOSE,POINT OF CARE 91 MG/DL (70-110)
[2025-10-18 16:30] LABS: GLUCOMETER DEV NAME(LOC) 3EX.2; GLUCOSE,POINT OF CARE 130 MG/DL (70-110)
[2025-10-18 20:21] LABS: GLUCOMETER DEV NAME(LOC) 3EX.2; GLUCOSE,POINT OF CARE 144 MG/DL (70-110)
[2025-10-18 20:39] VITALS: BP 118/67; PULSE 86; RESP 18; TEMP 97.8; O2SAT 97
[2025-10-18] MEDS: LOPERAMIDE HCL 2 MG CAPSULE PO PRN (20:52)
[2025-10-19 05:46] LABS: GLUCOMETER DEV NAME(LOC) 3EX.2; GLUCOSE,POINT OF CARE 109 MG/DL (70-110)
[2025-10-19 10:09] VITALS: BP 128/78; PULSE 88; RESP 18; TEMP 97.7; O2SAT 98
[2025-10-19 11:40] LABS: GLUCOMETER DEV NAME(LOC) 3EX.2; GLUCOSE,POINT OF CARE 135 MG/DL (70-110)
[2025-10-19 17:00] LABS: GLUCOMETER DEV NAME(LOC) 3EX.2; GLUCOSE,POINT OF CARE 182 MG/DL (70-110)
[2025-10-19 20:00] VITALS: BP 121/58; PULSE 76; RESP 18; TEMP 98.2; O2SAT 94
[2025-10-19 20:30] LABS: GLUCOMETER DEV NAME(LOC) 3EX.2; GLUCOSE,POINT OF CARE 100 MG/DL (70-110)
[2025-10-20 05:50] LABS: GLUCOMETER DEV NAME(LOC) 3EX.2; GLUCOSE,POINT OF CARE 92 MG/DL (70-110)
[2025-10-20 10:57] VITALS: RESP 18
[2025-10-20 12:10] LABS: GLUCOMETER DEV NAME(LOC) 3E.I 2; GLUCOSE,POINT OF CARE 90 MG/DL (70-110)
[2025-10-20 16:45] LABS: GLUCOMETER DEV NAME(LOC) 3EX.2; GLUCOSE,POINT OF CARE 138 MG/DL (70-110)
[2025-10-20 20:15] VITALS: BP 114/99; PULSE 70; RESP 18; TEMP 98.1; O2SAT 98
[2025-10-20 21:35] LABS: GLUCOMETER DEV NAME(LOC) 3EX.2; GLUCOSE,POINT OF CARE 171 MG/DL (70-110)
[2025-10-21 06:45] LABS: GLUCOMETER DEV NAME(LOC) 3EX.2; GLUCOSE,POINT OF CARE 117 MG/DL (70-110)
[2025-10-21 11:05] LABS: CALCIUM, TOTAL 8.2 mg/dL (8.8-10.5); CREATININE 0.72 mg/dL (0.60-1.30); GLOMERULAR FILTR. RATE CALC > 60 mL/min (>60); GLUCOSE,RANDOM 229 mg/dL (70-110); SODIUM SERUM 138 mmol/L (136-145); UREA NITROGEN, BLOOD 12 mg/dL (7-18)
[2025-10-21 11:55] LABS: GLUCOMETER DEV NAME(LOC) 3EX.2; GLUCOSE,POINT OF CARE 184 MG/DL (70-110)
[2025-10-21] MEDS: OLANZapine 5 MG RAPDIS TABLET PO SCH (12:39)
[2025-10-21 17:09] VITALS: RESP 18
[2025-10-21 17:40] LABS: GLUCOMETER DEV NAME(LOC) 3EX.2; GLUCOSE,POINT OF CARE 128 MG/DL (70-110)
[2025-10-21 20:26] LABS: GLUCOMETER DEV NAME(LOC) 3EX.2; GLUCOSE,POINT OF CARE 158 MG/DL (70-110)
[2025-10-21 20:54] VITALS: BP 115/78; PULSE 76; RESP 18; TEMP 98.3; O2SAT 98
[2025-10-22] VITALS (9 sets, daily range): BP systolic 103–124; BP diastolic 51–63; PULSE 61–80; RESP 17–18; TEMP 97.5–98.7; O2SAT 98–100
[2025-10-22 06:01] LABS: GLUCOMETER DEV NAME(LOC) 3EX.2; GLUCOSE,POINT OF CARE 88 MG/DL (70-110)
[2025-10-22] MEDS ORDERED: GADOTERATE MEGLUMINE 10 MMOL/20 ML VIAL IVP ONE (09:31)
[2025-10-22 12:06] LABS: GLUCOMETER DEV NAME(LOC) 3EX.2; GLUCOSE,POINT OF CARE 125 MG/DL (70-110)
[2025-10-22 17:11] LABS: GLUCOMETER DEV NAME(LOC) 3EX.2; GLUCOSE,POINT OF CARE 131 MG/DL (70-110)
[2025-10-22 22:01] LABS: GLUCOMETER DEV NAME(LOC) 3EX.2; GLUCOSE,POINT OF CARE 165 MG/DL (70-110)
[2025-10-23 06:41] LABS: GLUCOMETER DEV NAME(LOC) 3EX.2; GLUCOSE,POINT OF CARE 106 MG/DL (70-110)
[2025-10-23] MEDS ORDERED: RINGERS SOLUTION,LACTATED 1,000 ML IV ONE (09:30)
[2025-10-23] MEDS ORDERED: HALO1TAB19 PO (10:06)
[2025-10-23] MEDS ORDERED: TRIH5TAB3 PO (10:06)
[2025-10-23] MEDS ORDERED: GUAN1TAB2 PO (10:06)
[2025-10-23] MEDS ORDERED: BUPR1TAB46 SL (10:06)
[2025-10-23] MEDS ORDERED: OLAN5TAB94 PO (10:06)
[2025-10-23] MEDS ORDERED: INSLAN SQ (11:31)
[2025-10-23] MEDS: ETHYL ALCOHOL 62% ANTISEPTIC NASAL SANITIZER 0.6 ML AMPUL NASAL ONE (11:47)
[2025-10-23] MEDS: CHLORHEXIDINE GLUCONATE 2% TOWELETTE [2'S/6'S] TP ONE (11:48)
[2025-10-23] MEDS: RINGERS SOLUTION,LACTATED 1,000 ML IV ONE (11:50)
[2025-10-23] MEDS: BUPIVACAINE HCL/PF 0.5% 10 ML VIAL ONE (12:35)
[2025-10-23] MEDS: LIDOCAINE/PF 2% 5 ML VIAL ONE (12:35)
[2025-10-23 12:38] VITALS: BP 107/51; PULSE 64; RESP 18; TEMP 97.5; O2SAT 96
[2025-10-23 12:46] LABS: GLUCOMETER DEV NAME(LOC) SDS.; GLUCOSE,POINT OF CARE 81 MG/DL (70-110)
[2025-10-23] MEDS ORDERED: MIDAZOLAM HCL 2 MG/2 ML VIAL IVP ONE (14:29)
[2025-10-23] MEDS ORDERED: PROPOFOL 1% 20 ML VIAL IVP ONE (14:29)
[2025-10-23] MEDS ORDERED: FentaNYL CITRATE PF 100 MCG/2 ML VIAL IVP ONE (14:29)
[2025-10-23] MEDS ORDERED: LIDOCAINE/PF 2% 5 ML VIAL IM ONE (14:29)
[2025-10-23] MEDS ORDERED: KETAMINE HCL 50 MG/ML 10 ML VIAL IVP ONE (14:29)
== END 2025-10-23 14:30 | disposition short-term general hospital (02) | DRG 740 ==
LOC: 3EC 21:15 → 3EI 09-26 10:53
PROVIDERS: ADMIT Psychiatry & Neurology Psychiatry; ATTEND Psychiatry & Neurology Psychiatry
PROC: 0QBP0ZZ Excision of Left Metatarsal, Open Approach (ICD-10-PCS; 2025-10-23)
PROC: 0JBR0ZZ Excision of Left Foot Subcutaneous Tissue and Fascia, Open Approach (ICD-10-PCS; 2025-10-23)
PROC: 0QBP0ZZ Excision of Left Metatarsal, Open Approach (ICD-10-PCS; principal; 2025-10-23 12:30)
DX: F25.0 Schizoaffective disorder, bipolar type (principal); E10.52 Type 1 diabetes mellitus with diabetic peripheral angiopathy with gangrene; L97.819 Non-pressure chronic ulcer of other part of right lower leg with unspecified severity; L97.829 Non-pressure chronic ulcer of other part of left lower leg with unspecified severity; E10.40 Type 1 diabetes mellitus with diabetic neuropathy, unspecified; B36.9 Superficial mycosis, unspecified; M86.8X7 Other osteomyelitis, ankle and foot; L02.612 Cutaneous abscess of left foot; E66.9 Obesity, unspecified; F11.20 Opioid dependence, uncomplicated; I10 Essential (primary) hypertension; Z20.822 Contact with and (suspected) exposure to COVID-19; E10.69 Type 1 diabetes mellitus with other specified complication; E78.5 Hyperlipidemia, unspecified; E10.621 Type 1 diabetes mellitus with foot ulcer; F84.0 Autistic disorder; G47.00 Insomnia, unspecified; R45.851 Suicidal ideations; F90.9 Attention-deficit hyperactivity disorder, unspecified type; Z79.4 Long term (current) use of insulin; Z86.73 Personal history of transient ischemic attack (TIA), and cerebral infarction without residual deficits; Z91.148 Patient's other noncompliance with medication regimen for other reason; Z68.38 Body mass index [BMI] 38.0-38.9, adult
CPT/HCPCS: 73503; 73720; 80048; 80061; 80164; 81003; 82962; 83036; 83690; 85025; 85651; 86140; 87070; 87081; 87205; 87804; J1200; J1815; J2250; J2704; J3010; J3490; J7120; Q0162